=== PATIENT | male | born 1960 | race Caucasian/White ===

== ENCOUNTER 2022-02-15 08:37 | Observation (INO) ==
[2022-02-15 09:08] LABS: Basophils % 0.7 %; Eosinophils # 0.2 K/mcL (0.0-0.6); Eosinophils % 3.5 %; Hemoglobin 14.8 g/dL (12.9-16.9); Immature Granulocytes % 0.2 % (0-4); Lymphocytes # 1.2 K/mcL (0.6-4.6); Lymphocytes % 25.8 %; Mean Corpuscular HGB Conc 36.1 g/dL (31.6-35.5); Mean Corpuscular Hemoglobin 32.2 pg (28.0-33.3); Mean Corpuscular Volume 89.3 fL (83.0-100.0); Mean Platelet Volume 9.3 fL (9.4-12.4); Monocytes # 0.7 K/mcL (0.0-1.3); Monocytes % 14.5 %; Neutrophils # 2.5 K/mcL (1.6-8.9); Platelet Count 225 K/mcL (140-400); Red Blood Count 4.59 M/mcL (4.19-5.50); Red Cell Distribution Width 11.3 % (11.5-14.5); Segmented Neutrophils % 55.3 %; White Blood Count 4.5 K/mcL (4.3-11.1)
[2022-02-15 09:17] LABS: Prothrombin Time 11.2 Seconds (9.4-12.1)
[2022-02-15 10:17] LABS: BUN/Creatinine Ratio 15 (6-26); Blood Urea Nitrogen 13 mg/dL (8-23); Calcium 8.9 mg/dL (8.6-10.3); Carbon Dioxide 29 mEq/L (23-29); Chloride 82 mEq/L (98-107); Glucose 90 mg/dL (70-105); Osmolality,Calculated 244 (280-300); Sodium 117 mEq/L (136-145); Troponin I < 0.03 ng/mL (< 0.04); eGFR For African Americans > 60 (> 60); eGFR For Non-African Americans > 60 (> 60)
[2022-02-15] MEDS: 0.9 % Sodium Chloride 1,000 ML IVC SCH ×2 (10:45→22:24)
[2022-02-15] MEDS ORDERED: Naloxone 0.4 MG/ML INJ IVP PRN (11:19)
[2022-02-15] MEDS ORDERED: *HR* LORazepam 2 MG/ML VIAL IVP PRN ×3 (11:22)
[2022-02-15] MEDS ORDERED: hydrALAZINE 25 MG TABLET PO PRN ×2 (11:24→11:25)
[2022-02-15] MEDS: lisinopriL 20 MG TABLET PO SCH ×2 (13:23→22:24)
[2022-02-15] MEDS: Nicotine 21 MG PATCH.TD24 TD SCH (15:26)
[2022-02-15 16:25] LABS: Sodium, Urine 42.3 mEq/L
[2022-02-16 05:57] LABS: Hematocrit 38.9 % (37.5-50.1); Hemoglobin 13.8 g/dL (12.9-16.9); Mean Corpuscular HGB Conc 35.5 g/dL (31.6-35.5); Mean Corpuscular Hemoglobin 32.2 pg (28.0-33.3); Mean Corpuscular Volume 90.9 fL (83.0-100.0); Mean Platelet Volume 9.9 fL (9.4-12.4); Platelet Count 205 K/mcL (140-400); Red Blood Count 4.28 M/mcL (4.19-5.50); Red Cell Distribution Width 11.6 % (11.5-14.5); White Blood Count 4.1 K/mcL (4.3-11.1)
[2022-02-16 06:15] LABS: BUN/Creatinine Ratio 12 (6-26); Blood Urea Nitrogen 11 mg/dL (8-23); Calcium 8.6 mg/dL (8.6-10.3); Carbon Dioxide 27 mEq/L (23-29); Chloride 91 mEq/L (98-107); Glucose 99 mg/dL (70-105); Magnesium 1.7 mg/dL (1.6-2.6); Osmolality,Calculated 255 (280-300); Potassium 4.4 mEq/L (3.5-5.1); Sodium 123 mEq/L (136-145); eGFR For African Americans > 60 (> 60); eGFR For Non-African Americans > 60 (> 60)
[2022-02-16] MEDS: *HR* Enoxaparin 40 MG/0.4 ML SYRINGE SQ SCH (06:34)
[2022-02-16] MEDS: lisinopriL 20 MG TABLET PO SCH ×2 (11:13→23:10)
[2022-02-16] MEDS: Aspirin 81 MG TAB.CHEW PO SCH (11:13)
[2022-02-16] MEDS: amLODIPine 5 MG TABLET PO SCH (11:14)
[2022-02-16] MEDS: Nicotine 21 MG PATCH.TD24 TD SCH (11:14)
[2022-02-16] MEDS ORDERED: 0.9 % Sodium Chloride 1,000 ML IVC SCH (11:15)
[2022-02-16 20:34] VITALS: RESP 16
[2022-02-16] MEDS: hydrALAZINE 25 MG TABLET PO SCH (23:10)
[2022-02-17] MEDS: *HR* Enoxaparin 40 MG/0.4 ML SYRINGE SQ SCH (05:25)
[2022-02-17] MEDS: hydrALAZINE 25 MG TABLET PO SCH ×2 (05:25→08:25)
[2022-02-17] MEDS: amLODIPine 5 MG TABLET PO SCH (08:27)
[2022-02-17] MEDS: lisinopriL 20 MG TABLET PO SCH (08:27)
[2022-02-17] MEDS: Aspirin 81 MG TAB.CHEW PO SCH (08:27)
[2022-02-17] MEDS: Nicotine 21 MG PATCH.TD24 TD SCH (08:28)
[2022-02-17 08:52] LABS: Basophils % 0.5 %; Eosinophils # 0.1 K/mcL (0.0-0.6); Eosinophils % 2.2 %; Hematocrit 39.4 % (37.5-50.1); Hemoglobin 13.8 g/dL (12.9-16.9); Immature Granulocytes % 0.2 % (0-4); Lymphocytes # 1.2 K/mcL (0.6-4.6); Lymphocytes % 18.4 %; Mean Corpuscular Hemoglobin 32.5 pg (28.0-33.3); Mean Corpuscular Volume 92.9 fL (83.0-100.0); Mean Platelet Volume 10.1 fL (9.4-12.4); Monocytes # 0.7 K/mcL (0.0-1.3); Monocytes % 10.7 %; Neutrophils # 4.4 K/mcL (1.6-8.9); Platelet Count 212 K/mcL (140-400); Red Blood Count 4.24 M/mcL (4.19-5.50); Red Cell Distribution Width 11.9 % (11.5-14.5); White Blood Count 6.4 K/mcL (4.3-11.1)
[2022-02-17 09:03] LABS: BUN/Creatinine Ratio 10 (6-26); Blood Urea Nitrogen 8 mg/dL (8-23); Calcium 8.9 mg/dL (8.6-10.3); Carbon Dioxide 28 mEq/L (23-29); Chloride 91 mEq/L (98-107); Glucose 105 mg/dL (70-105); Osmolality,Calculated 257 (280-300); Potassium 4.1 mEq/L (3.5-5.1); Sodium 124 mEq/L (136-145); eGFR For African Americans > 60 (> 60); eGFR For Non-African Americans > 60 (> 60)
[2022-02-17 09:12] VITALS: BP 145/82; PULSE 69; TEMP 98.2; O2SAT 100
== END 2022-02-17 10:04 | disposition home or self-care (01) ==
LOC: INPPIK 08:37 → EMEROOPIK 08:37 → INPPIK 11:25
PROVIDERS: ADMIT Internal Medicine; ATTEND Internal Medicine